=== PATIENT | female | born 1995 | race African-American/Black ===

== ENCOUNTER 2020-10-01 22:12 | Emergency (ER) | payer BC | END 2020-10-01 23:36 | disposition home or self-care (01) | LOC: CSHERS 22:12 | DX: J06.9 Acute upper respiratory infection, unspecified (principal); J45.909 Unspecified asthma, uncomplicated | CPT/HCPCS: 99281 ==

== ENCOUNTER 2022-11-11 22:49 | Emergency (ER) | payer BC ==
[2022-11-12] MEDS ORDERED: Cephalexin 250 MG CAP ONE (00:04)
[2022-11-12] MEDS ORDERED: Acetaminophen 500 MG TAB ONE (00:04)
== END 2022-11-12 00:07 | disposition home or self-care (01) ==
LOC: CSHERS 22:49
DX: L60.0 Ingrowing nail (principal); J45.909 Unspecified asthma, uncomplicated
CPT/HCPCS: 99283